=== PATIENT | female | born 1960 | race Two or more races ===

== ENCOUNTER 2024-07-24 14:29 | Emergency (ER) | payer OTHER ==
[~2024-07-24] VITALS: Ht 162.6 cm; Wt 83.9 kg
[2024-07-24 14:34] VITALS: BP 119/74; O2SAT 99
[2024-07-24] MEDS ORDERED: SYNTHROID137 MCG (14:35)
[2024-07-24] MEDS ORDERED: ORPHENADRINE CITRATE 30 MG/ML AMPUL IM STA (18:13)
[2024-07-24] MEDS ORDERED: KETOROLAC TROMETHAMINE 15 MG VIAL IM STA (18:13)
[2024-07-24] MEDS ORDERED: DEXAMETHASONE SODIUM PHOSPHATE 4 MG/ML VIAL IM STA (18:14)
[2024-07-24] MEDS ORDERED: KETOROLAC TROMETHAMINE 30 MG VIAL ONE (18:50)
[2024-07-24] MEDS ORDERED: DEXAMETHASONE SODIUM PHOSPHATE 4 MG/ML VIAL ONE (18:50)
[2024-07-24] MEDS ORDERED: ORPHENADRINE CITRATE 30 MG/ML AMPUL ONE (18:50)
== END 2024-07-25 01:55 | disposition home or self-care (01) ==
LOC: ER 14:29
DX: S20.229A Contusion of unspecified back wall of thorax, initial encounter (principal); W19.XXXA Unspecified fall, initial encounter; Y93.89 Activity, other specified; Y92.238 Other place in hospital as the place of occurrence of the external cause; Y99.8 Other external cause status; E03.8 Other specified hypothyroidism; Z88.0 Allergy status to penicillin
CPT/HCPCS: 72170; 72192; 73560; 96372; 99284; J1100; J1885; J2360